=== PATIENT | female | born 1955 | race Caucasian/White ===

== ENCOUNTER 2017-06-27 06:50 | Day surgery (SDC) | payer BC ==
[2017-06-26 11:51] VITALS: BMI 34.5
[2017-06-27] MEDS ORDERED: SUCCINYLCHOLINE CHLORIDE 200 MG/10 ML VIAL ONE (07:47)
[2017-06-27] MEDS ORDERED: LIDOCAINE HCL/PF 2% SDV 5ML VIAL ONE (07:47)
[2017-06-27] MEDS ORDERED: PROPOFOL 20 ML ONE ×5 (07:47)
[2017-06-27 08:54] VITALS: TEMP 97.5
[2017-06-27 10:19] VITALS: BP 124/80; PULSE 62
--- NOTE | 2017-06-30 11:02 | PATH ---
Surgical Pathology Report Patient Name: [facility]. Rec. #: [id number] /Age/Gender: 1955 (Age: 62) / F Account: [id number] Location: [facility]-ENDOSCOPY Taken: 06/27/2017 Received: 06/27/2017 Reported: 06/30/2017 Physicians: Audra Vargas M.D. Specimen(s) Received A: BX DUODENUM SECOND PORTION AND BULB B: BX ANTRUM FUNDUS BODY C: BX ASCENDING COLON POLYP D: BX TRANSVERSE COLON POLYP Clinical History Preoperative diagnosis: History of gastric intestinal metaplasia, family history of gastric cancer, history of colon polyps Postoperative diagnosis: Atrophic gastritis, colon polyp Final Diagnosis A. DUODENUM, SECOND PORTION AND BULB, BIOPSY: DUODENAL MUCOSA WITH NO PATHOLOGIC CHANGES. NO HISTOLOGIC EVIDENCE OF GLUTEN SENSITIVE ENTEROPATHY (CELIAC SPRUE) IDENTIFIED. B. STOMACH, FUNDUS WITH ANTRUM AND BODY, BIOPSY: MODERATE CHRONIC GASTRITIS WITH REACTIVE GASTROPATHY AND INTESTINAL METAPLASIA. NO DYSPLASIA IDENTIFIED. IMMUNOSTAIN FOR H. PYLORI IS NEGATIVE. C. COLON, ASCENDING, BIOPSY: TUBULAR ADENOMA. D. COLON, TRANSVERSE, BIOPSY: COLONIC MUCOSA WITH NO PATHOLOGIC CHANGES. NO ADENOMATOUS OR HYPERPLASTIC CHANGES IDENTIFIED. Electronically Signed Tamir Bolden M.D. Gross Description A. Received in formalin, labeled "biopsy second portion of duodenum and bulb" are 3 hope, irregular portions of soft tissue averaging 0.3 cm. in greatest dimension. The specimens are submitted in toto in one cassette. B. Received in formalin labeled "biopsy fundus body antrum," is a 1.2 x 1.2 x 0.3 cm aggregate of hope soft tissue fragments. The formalin is filtered and the specimen is entirely submitted in one cassette. C. Received in formalin, labeled "biopsy ascending colon polyp" are 3 hope, irregular portions of soft tissue ranging from 0.2-0.3 cm. in greatest dimension. The specimens are submitted in toto in one cassette. D. Received in formalin, labeled "biopsy polyp transverse colon" are 3 hope, irregular portions of soft tissue ranging from 0.1-0.3 cm. in greatest dimension. The specimens are submitted in toto in one cassette. /06/27/2017 saudi06/27/2017
== END 2017-06-27 10:37 | disposition home or self-care (01) ==
LOC: JASU-ENDO 06:50
PROVIDERS: ATTEND Internal Medicine Gastroenterology
PROC: 0DBL8ZX Excision of Transverse Colon, Via Natural or Artificial Opening Endoscopic, Diagnostic (ICD-10-PCS; 2017-06-27)
PROC: 0DB98ZX Excision of Duodenum, Via Natural or Artificial Opening Endoscopic, Diagnostic (ICD-10-PCS; 2017-06-27)
PROC: 0DB68ZX Excision of Stomach, Via Natural or Artificial Opening Endoscopic, Diagnostic (ICD-10-PCS; 2017-06-27)
PROC: 0DBK8ZX Excision of Ascending Colon, Via Natural or Artificial Opening Endoscopic, Diagnostic (ICD-10-PCS; principal; 2017-06-27 08:00)
DX: Z86.010 Personal history of colon polyps (principal); D12.2 Benign neoplasm of ascending colon; D12.3 Benign neoplasm of transverse colon; K29.50 Unspecified chronic gastritis without bleeding; K31.9 Disease of stomach and duodenum, unspecified; Z80.0 Family history of malignant neoplasm of digestive organs
CPT/HCPCS: 88305-TC; 88342-TC